=== PATIENT | male | born 1945 | race Caucasian/White ===

== ENCOUNTER 2020-03-13 00:15 | Inpatient (IN) | payer BC, MEDICAID, OTHER ==
[~2020-03-13] VITALS: Ht 167.6 cm; Wt 70.4 kg
[2020-03-13] MEDS ORDERED: ONDANSETRON HCL 4 MG/2 ML VIAL IV ONE (00:30)
[2020-03-13] MEDS ORDERED: MORPHINE SULFATE 4 MG/ML SYR/VIAL IV ONE ×2 (00:30→00:45)
[2020-03-13] MEDS ORDERED: NITROGLYCERIN 0.4 MG SL TAB SL ONE (00:45)
[2020-03-13] MEDS ORDERED: ASPirin-EC 81 mg tab PO ONE (00:45)
[2020-03-13 01:20] LABS: Basophils # (auto) 0.1 10 ^3/uL (0-0.2); Basophils % (auto) 1.1 % (0.0-2.0); Eosinophils # (auto) 0.6 10 ^3/uL (0-0.8); Eosinophils % (auto) 5.5 % (0.0-7.0); Hemoglobin 14.1 g/dL (13.5-17.5); Lymphocytes # (auto) 2.9 10 ^3/uL (0.4-5.4); Lymphocytes % (auto) 28.2 % (10.0-50.0); Mean Corpuscular Hemoglobin 29.5 pg (28.0-32.0); Mean Corpuscular Hgb Conc. 32.8 g/dL (32.0-36.0); Mean Corpuscular Volume 89.9 fL (80.0-100.0); Monocytes # (auto) 0.7 10 ^3/uL (0-1.3); Monocytes % (auto) 6.9 % (0.0-12.0); Neutrophils # (auto) 6.1 10 ^3/uL (1.6-8.6); Neutrophils % (auto) 58.3 % (37.0-80.0); Platelet Count (auto) 153 10^3/uL (140-450); Red Blood Cells 4.78 10^6/uL (4.5-5.90); Red Cell Distribution Width 13.8 % (11.8-14.3); White Blood Cell 10.5 10^3/uL (4.4-10.8)
[2020-03-13 01:33] LABS: Albumin 3.5 g/dL (3.4-5.0); Calcium 8.4 mg/dL (8.5-10.1); Potassium 3.9 mmol/L (3.5-5.1)
[2020-03-13 01:36] LABS: BUN/Creatinine Ratio 17.7
[2020-03-13 01:41] LABS: Bilirubin, Total 0.5 mg/dL (0.2-1.0); Total Protein 7.7 g/dL (6.4-8.2)
[2020-03-13 02:03] LABS: INR 1.14 (0.9-1.15); Partial Thromboplastin Time 27.1 sec (23.64-32.05)
[2020-03-13] MEDS ORDERED: FUROSEMIDE 20 MG/2 ML VIAL IV ONE (02:45)
[2020-03-13 03:51] LABS: Urine Bacteria None Seen /hpf (None Seen); Urine WBC None Seen /hpf (0 - 3)
[2020-03-13 04:52] LABS: Urine Specific Gravity 1.027 (1.001-1.035)
[2020-03-13 04:53] LABS: Urine Blood Normal /uL (Negative)
[2020-03-13] MEDS ORDERED: DEXTROSE (50%) 50ML SYRG IV PRN (07:45)
[2020-03-13] MEDS: CARVEDILOL 3.125 MG TAB PO SCH ×2 (09:44→21:38)
[2020-03-13] MEDS: POTASSIUM CHL 10 Meq TABLET PO SCH ×2 (09:44→21:32)
[2020-03-13] MEDS ORDERED: CARV6.2551 PO (09:48)
[2020-03-13] MEDS: ENOXAPARIN SOD 80 MG/0.8ML SYRINGE SC SCH ×3 (09:48→21:33)
[2020-03-13] MEDS: ASPirin-EC 81 mg tab PO SCH (10:00)
[2020-03-13] MEDS ORDERED: ENOXAPARIN SOD 80 MG/0.8ML SYRINGE SC SCH (10:00)
[2020-03-13] MEDS ORDERED: CARVEDILOL 3.125 MG TAB PO ONE (10:00)
[2020-03-13] MEDS ORDERED: ASPirin 81 mg TAB PO ONE (10:00)
[2020-03-13] MEDS ORDERED: ACETAMINOPHEN 500 MG TAB PO ONE (10:00)
[2020-03-13] MEDS ORDERED: FUROSEMIDE 40 MG/4 ML VIAL IV ONE (10:00)
[2020-03-13] MEDS ORDERED: POTASSIUM CHL 20 Meq TABLET PO ONE (10:00)
[2020-03-13] MEDS: InsuLIN REG 1unit/0.01ml Soln (100units/ml) SC SCH ×3 (11:29→21:54)
[2020-03-13] MEDS: ACCU-CHEK COMFORT CURVE STRIP VI SCH ×3 (11:29→21:33)
[2020-03-13 17:10] VITALS: BP 124/74
--- NOTE | 2020-03-13 17:10 | NUR ---
Telemetry admit from ER MIRNA SETH admitted to Telemetry unit after SBAR received. Patient oriented to RUBY ochoa RN, unit, room, bed, and unit policies regarding patient care and visiting hours. Patient now on continuous telemetry monitoring, tele box # 15 and telemetry reading on arrival to unit is normal sinus rhythm. Patient weighed by bedscale and encouraged to call if they need something. All questions and concerns addressed, patient verbalized understanding.
--- NOTE | 2020-03-13 17:34 | NUR ---
LAB UPDATE Received call in regards to blood cultures. I will notify attending MD.
--- NOTE | 2020-03-13 17:44 | NUR ---
Notified MD Called Dr. Owen in regards to patients blood cultures. Left a message and awaiting call back.
--- NOTE | 2020-03-13 17:46 | NUR ---
Received call back Updated MD about blood cultures, new orders received, I will follow through with new orders.
[2020-03-13] MEDS ORDERED: OPTISON 3ml Vial for INJ IV ONE (17:54)
[2020-03-13] MEDS ORDERED: VANCOMYCIN 1GM/250ML 250 ML IV ONE (18:00)
[2020-03-13] MEDS ORDERED: DULA0.5I (18:03)
[2020-03-13] MEDS ORDERED: DONE10TA40 (18:03)
[2020-03-13] MEDS ORDERED: GLIM1TAB3 (18:03)
[2020-03-13] MEDS ORDERED: MEMA1TAB5 PO (18:03)
[2020-03-13] MEDS ORDERED: FURO40TA4 (18:03)
[2020-03-13] MEDS ORDERED: ATOR40TA52 (18:03)
[2020-03-13] MEDS ORDERED: LISI-275 (18:03)
[2020-03-13] MEDS ORDERED: ICOS1CAP (18:03)
[2020-03-13] MEDS ORDERED: NORT25CA (18:03)
[2020-03-13] MEDS ORDERED: INSU1INJ19 (18:03)
[2020-03-13] MEDS: FUROSEMIDE 20 MG/2 ML VIAL IV SCH (18:23)
--- NOTE | 2020-03-13 19:15 | NUR ---
End of shift note Endorsed care to NOC JOLIE pastor. No s/s of distress noted at this time.
--- NOTE | 2020-03-13 19:15 | NUR ---
Opening note Assumed care of patient. Patient alert and orientated x4. No chest pain or SOB noted. Bed locked in lowest position. Side rails up x2. POC reviewed. Patient verbalized understanding. Call light within reach. Will continue to monitor.
[2020-03-13] MEDS: ATORVASTATIN 20 MG TAB PO SCH (21:32)
[2020-03-13 22:00] VITALS: BP 103/62
[2020-03-13] MEDS ORDERED: NORTRIPTYLINE HCL 10 MG CAP PO ONE (22:00)
[2020-03-13] MEDS ORDERED: ATORVASTATIN 20 MG TAB PO ONE (22:00)
[2020-03-13] MEDS ORDERED: DONEPEZIL HYDROCHLORIDE 5 MG TAB PO ONE (22:00)
[2020-03-14 05:00] VITALS: BP 104/66
[2020-03-14] MEDS: ACCU-CHEK COMFORT CURVE STRIP VI SCH ×4 (06:13→21:49)
[2020-03-14] MEDS: InsuLIN REG 1unit/0.01ml Soln (100units/ml) SC SCH ×4 (06:13→22:02)
[2020-03-14] MEDS: FUROSEMIDE 20 MG/2 ML VIAL IV SCH ×2 (06:13→17:57)
[2020-03-14 06:27] LABS: Basophils # (auto) 0.1 10 ^3/uL (0-0.2); Basophils % (auto) 0.7 % (0.0-2.0); Eosinophils # (auto) 0.6 10 ^3/uL (0-0.8); Eosinophils % (auto) 5.7 % (0.0-7.0); Hematocrit 41.1 % (41.0-53.0); Lymphocytes # (auto) 3.1 10 ^3/uL (0.4-5.4); Lymphocytes % (auto) 31.3 % (10.0-50.0); Mean Corpuscular Hemoglobin 30.4 pg (28.0-32.0); Mean Corpuscular Hgb Conc. 34.1 g/dL (32.0-36.0); Monocytes # (auto) 0.9 10 ^3/uL (0-1.3); Monocytes % (auto) 8.9 % (0.0-12.0); Neutrophils # (auto) 5.3 10 ^3/uL (1.6-8.6); Neutrophils % (auto) 53.4 % (37.0-80.0); Platelet Count (auto) 144 10^3/uL (140-450); Red Blood Cells 4.61 10^6/uL (4.5-5.90); White Blood Cell 9.9 10^3/uL (4.4-10.8)
[2020-03-14 06:31] LABS: Potassium 3.7 mmol/L (3.5-5.1)
[2020-03-14 06:43] LABS: BUN/Creatinine Ratio 24.3; Calcium 8.7 mg/dL (8.5-10.1)
--- NOTE | 2020-03-14 07:16 | NUR ---
Closing note Endorsed care to day shift RN.
--- NOTE | 2020-03-14 07:30 | NUR ---
Opening shift note Assumed care of patient from NOC JOLIE Henry. Patient is AOx4, so signs and symptoms of distress noted. Bed is in lowest locked position, side rails up x2, and call light is within reach. Updated patient on plan of care and patient verbalized understanding. I will continue to monitor q1hr and PRN.
[2020-03-14 08:36] VITALS: BP 116/76
[2020-03-14] MEDS ORDERED: LIDOCAINE 2%HCL (LOCAL ANESTH.) INJ 20ML MDV ONE ×2 (08:53→09:42)
[2020-03-14] MEDS ORDERED: IODIXANOL 320MG/ML 100ML BTL IV ONE ×2 (08:53→09:43)
[2020-03-14] MEDS ORDERED: VERAPAMIL 2.5MG/ML INJ 2ML VIAL IV ONE ×2 (08:56→10:00)
[2020-03-14] MEDS ORDERED: ANGIOMAX 250 MG VIAL IV ONE ×2 (08:57→10:00)
[2020-03-14] MEDS ORDERED: MIDAZOLAM HCL 1MG/1ML-2 ML VIAL ONE ×2 (08:57→10:01)
[2020-03-14] MEDS ORDERED: fentaNYL CITRATE 100 MCG/2 ML VL ONE ×2 (08:57→10:01)
[2020-03-14] MEDS ORDERED: SODIUM CHL 0.9% 0 ML ONE ×2 (08:57→10:01)
--- NOTE | 2020-03-14 09:25 | NUR ---
Patient off unit Patient taken down to laboratory associate for a procedure.
[2020-03-14] MEDS ORDERED: HEPARIN SODIUM (PORCINE) 5000 UNITS/ML 1ML VIAL ONE (10:00)
[2020-03-14] MEDS: ENOXAPARIN SOD 80 MG/0.8ML SYRINGE SC SCH ×2 (10:00→21:49)
[2020-03-14] MEDS ORDERED: NITROGLYCERIN 50MG/250ML 250 ML IV ONE (10:05)
[2020-03-14] MEDS ORDERED: diphenhdrAMINE HCL 50 MG/1 ML VL ONE (10:17)
--- NOTE | 2020-03-14 11:20 | NUR ---
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
--- NOTE | 2020-03-14 11:48 | NUR ---
Patient back on unit Patient back on unit, no signs and symptoms of distress noted. Patient placed on 2l oxygen via nasal cannula, call light placed within reach, and instructed patient to call for assistance. I will continue to monitor q1hr and PRN.
--- NOTE | 2020-03-14 11:50 | NUR ---
Vasc Band Vasc band is in place, 2ml of air removed. No bleeding noted. Educated patient about potential adverse effects and instructed to notify primary RN or staff member if bleeding, or loss of sensation is noted in the extremity. Patient verbalized understanding. I will continue to monitor q1hr and PRN.
--- NOTE | 2020-03-14 12:15 | NUR ---
Vasc Band Assessment: 2ml of air removed from vasc band. No bleeding noted. Educated patient about potential adverse effects and instructed to notify primary RN or staff member if bleeding, or loss of sensation is noted in the extremity. Patient verbalized understanding. I will continue to monitor q1hr and PRN.
[2020-03-14] MEDS: ASPirin-EC 81 mg tab PO SCH (12:32)
[2020-03-14] MEDS: POTASSIUM CHL 10 Meq TABLET PO SCH ×2 (12:32→21:48)
[2020-03-14] MEDS: CARVEDILOL 3.125 MG TAB PO SCH ×2 (12:33→21:47)
[2020-03-14 12:51] VITALS: BP 117/72
--- NOTE | 2020-03-14 15:45 | NUR ---
Vasc Band Assessment: Final 2ml of air removed from vasc band. Site is intact, no trauma or bleeding noted. Patient verbalized having sensation in distal hand, and has full range of motion. Educated patient about potential adverse effects and instructed to notify primary RN or staff member if bleeding, or loss of sensation is noted in the extremity. Educated patient to not lift more than 5lb with affected extremity and not to strain extremity. Patient verbalized understanding. I will continue to monitor q1hr and PRN.
[2020-03-14 16:39] VITALS: BP 123/63
--- NOTE | 2020-03-14 17:02 | NUR ---
I faxed higher level of care order to [facility], [facility], [facility], [facility] and [facility]. I spoke with [facility] Dry Box Tender Isabella and made her aware of the higher level of care order.
--- NOTE | 2020-03-14 17:07 | NUR ---
Received call from physician Received call from Dr. Torres regarding transfer. No new orders received at this time.
--- NOTE | 2020-03-14 17:56 | NUR ---
I called [facility] and left message for powerhouse engineer asking about bed availability. I called [facility] to reach powerhouse engineer to check on bed availability-phone just rang and rang-unable to speak with a live person, unable to leave a message. I placed [facility] on will call pending transfer, made patient's primary nurse aware.
--- NOTE | 2020-03-14 19:10 | NUR ---
End of shift note Endorsed care to NOC JOLIE pastor. No s/s of distress noted at this time.
--- NOTE | 2020-03-14 19:20 | NUR ---
Opening note Assumed care of patient. Patient alert and orientated x4. No SOB or distress noted. Bed locked and lowest position. Call light within reach. Will continue to monitor.
[2020-03-14] MEDS: ATORVASTATIN 20 MG TAB PO SCH (21:48)
[2020-03-14 22:00] VITALS: BP 123/74
[2020-03-15] VITALS (8 sets, daily range): BP systolic 102–132; BP diastolic 62–78
[2020-03-15] MEDS: FUROSEMIDE 20 MG/2 ML VIAL IV SCH ×2 (05:52→19:33)
[2020-03-15] MEDS: InsuLIN REG 1unit/0.01ml Soln (100units/ml) SC SCH ×3 (06:26→16:57)
[2020-03-15] MEDS: ACCU-CHEK COMFORT CURVE STRIP VI SCH ×3 (06:26→16:58)
--- NOTE | 2020-03-15 07:27 | NUR ---
Closing note Endorsed care to day shift JOLIE Carvalho
--- NOTE | 2020-03-15 09:11 | NUR ---
I called [facility] and spoke with house builder-they have no beds available and have 26 patients in their ER waiting for a bed. I called [facility] [phone] and spoke with Ariela Ervin, provided her with contact information for Dr. Owen and Dr. Sanchez as well as the nurse's station. I re-faxed clinical information to them.
[2020-03-15] MEDS: ENOXAPARIN SOD 80 MG/0.8ML SYRINGE SC SCH (10:09)
[2020-03-15] MEDS: ASPirin-EC 81 mg tab PO SCH (10:09)
[2020-03-15] MEDS: POTASSIUM CHL 10 Meq TABLET PO SCH (10:10)
[2020-03-15] MEDS: CARVEDILOL 3.125 MG TAB PO SCH (10:10)
--- NOTE | 2020-03-15 11:33 | NUR ---
I spoke with Ariela Ervin at the [facility]-provided her with additional clinical information as requested-they are verifying financial status and she will give me a call back to let me know if they are able to accept this patient.
--- NOTE | 2020-03-15 11:43 | NUR ---
I called [facility] and spoke with Kacy, they have no beds available at this time. I called [facility] and spoke with Rahle-she said they have no beds available at this time. I called [employer] [phone] and left message updating her on the status of the transfer and requesting authorization numbers for facility as well as transportation.
--- NOTE | 2020-03-15 11:51 | NUR ---
I received a call from [facility] [employer] Isabella-authorization number for facility is [id number] and authorization number for [facility] is [id number]. I called [facility] and spoke with Manolo, provided him with [facility] authorization number and contact information for [employer]. I called [facility] ([phone]) and spoke with Navid, patient remains on will-call pending transfer to [facility]-provided her with [facility] authorization number.
--- NOTE | 2020-03-15 15:13 | NUR ---
Patient will be going to [facility] room 451 bed A, accepting physician is Dr. Joleen Ohara, nurse to call report to [phone]. I called [facility] ([phone]) and spoke with Kwame, picking table worker time 1830. Nurse Myron made aware, she is also aware that she needs to call [facility] when COVID-19 test results come in. I spoke with Ariela Ervin at [facility] [phone] and made her aware of picking table worker time. I also called [employer] and made her aware.
--- NOTE | 2020-03-15 17:03 | NUR ---
REPORT GIVEN TO MITCHEL, ALL QUESTIONS AND CONCERNS ADDRESSED.
--- NOTE | 2020-03-15 17:04 | NUR ---
NOTIFIED CM LACY VIA PHONE NUMBER [phone] REGARDING COVID 19 RESULT NEGATIVE, UPDATED WITH TRANSPORTATION INFO. WILL PROCEED WITH THE TRANSFER.
--- NOTE | 2020-03-15 19:34 | NUR ---
RECEIVED PHONE CALL FROM [facility]. [facility], TRANSPORTATION WILL BE DELAY PER [facility], PICC UP TIME WILL BE AT 2100.
--- NOTE | 2020-03-15 19:35 | NUR ---
CALL [facility], NOTIFIED MITCHEL DAVE TRANSPORTATION DELAY. MOLD STRIPPER TIME CHANGED TO 2099.
--- NOTE | 2020-03-15 20:20 | NUR ---
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 PATIENT IS STABLE FOR DISCHARGE. DENIES SOB, PAIN. NO DISTRESS NOTED. PATIENT IS AWARE OF POCS. [facility] IS AWARE OF PATIENT'S TRANSFER TO THEIR FACILITY. REPORT WAS GIVEN TO MITCHEL MCKINNEY BY JOLIE BECERRA. DOCS IN AN ENVELOPE WERE GIVEN TO [facility] STAFF. VITALS ARE: BP= 120/78 HR= 70 T= 97.3 O2= 97% RA RR= 18. BELONGINS ARE SENT WITH PATIENT. NOTHING IS MISSING OUT. TELE BOX WAS DISCONNECTED, SANITIZED AND SENT TO [facility]. MD, [employer] COMMUNICATIONS ENGINEER AND CHARGE NURSE ARE AWARE OF PATIENT'S TRANSFER TO [facility].
== END 2020-03-15 20:30 | disposition short-term general hospital (02) | DRG 280 ==
LOC: EDBD 00:15 → ER 00:20 → EDBD 00:21 → TELE 00:21 → TELE-EAST 18:28
PROVIDERS: ADMIT Hospitalist; ATTEND Hospitalist
PROC: 5A09357 Assistance with Respiratory Ventilation, Less than 24 Consecutive Hours, Continuous Positive Airway Pressure (ICD-10-PCS; 2020-03-13)
PROC: 4A023N7 Measurement of Cardiac Sampling and Pressure, Left Heart, Percutaneous Approach (ICD-10-PCS; principal; 2020-03-14)
PROC: B211YZZ Fluoroscopy of Multiple Coronary Arteries using Other Contrast (ICD-10-PCS; 2020-03-14)
PROC: B215YZZ Fluoroscopy of Left Heart using Other Contrast (ICD-10-PCS; 2020-03-14)
DX: T82.855A Stenosis of coronary artery stent, initial encounter (principal); I21.4 Non-ST elevation (NSTEMI) myocardial infarction; I50.43 Acute on chronic combined systolic (congestive) and diastolic (congestive) heart failure; I25.10 Atherosclerotic heart disease of native coronary artery without angina pectoris; F03.90 Unspecified dementia, unspecified severity, without behavioral disturbance, psychotic disturbance, mood disturbance, and anxiety; E11.9 Type 2 diabetes mellitus without complications; I11.0 Hypertensive heart disease with heart failure; Z20.828 Contact with and (suspected) exposure to other viral communicable diseases; Z86.73 Personal history of transient ischemic attack (TIA), and cerebral infarction without residual deficits; Z83.3 Family history of diabetes mellitus; Z95.1 Presence of aortocoronary bypass graft; Z79.4 Long term (current) use of insulin
CPT/HCPCS: 36415; 71045; 80048; 80053; 80061; 81001; 82962; 83036; 83605; 83880; 84484; 85025; 85379; 85610; 85730; 86850; 86900; 86901; 87040; 87070; 87077; 87186; 87804; 87880; 93005; 93306; 93458; 96374; 96375; 96376; 99152; G0378; J1815; J2250; J2405; Q9956; Q9967

== ENCOUNTER 2021-03-20 16:47 | Inpatient (IN) | payer BC, MEDICARE, OTHER ==
[~2021-03-20] VITALS: Ht 167.6 cm; Wt 73.0 kg
[~2021-03-20 16:47] MED LIST: ATOR40TA52 PO; CARV6.2551 PO; DONE1TAB88 PO; DULA0.5I SC; FURO40TA4 PO; GLIM-5 PO; ICOS1CAP PO; INSU1INJ19; LISI-275 PO; MEMA1TAB5 PO; NORT25CA PO
[2021-03-20] MEDS ORDERED: IBUP800T26 PO (16:57)
[2021-03-20] MEDS ORDERED: FUROSEMIDE 40 MG/4 ML VIAL IV ONE (17:00)
[2021-03-20] MEDS ORDERED: ONDANSETRON HCL 4 MG/2 ML VIAL IV ONE (17:15)
[2021-03-20] MEDS ORDERED: MORPHINE SULFATE 4 MG/ML SYR/VIAL IV ONE (17:15)
[2021-03-20 17:25] LABS: Basophils # (auto) 0.1 10 ^3/uL (0-0.2); Eosinophils # (auto) 0.4 10 ^3/uL (0-0.8); Hematocrit 45.4 % (41.0-53.0); Hemoglobin 15.4 g/dL (13.5-17.5); Lymphocytes # (auto) 2.1 10 ^3/uL (0.4-5.4); Lymphocytes % (auto) 22.6 % (10.0-50.0); Mean Corpuscular Hemoglobin 30.6 pg (28.0-32.0); Mean Corpuscular Volume 89.8 fL (80.0-100.0); Monocytes # (auto) 0.6 10 ^3/uL (0-1.3); Monocytes % (auto) 7.1 % (0.0-12.0); Neutrophils % (auto) 65.3 % (37.0-80.0); Red Blood Cells 5.05 10^6/uL (4.5-5.90); Red Cell Distribution Width 14.4 % (11.8-14.3); White Blood Cell 9.2 10^3/uL (4.4-10.8)
[2021-03-20 17:38] LABS: Anion Gap 9 (5-15); Blood Urea Nitrogen 16 mg/dL (7-18); Calcium 8.9 mg/dL (8.5-10.1); Carbon Dioxide 24 mmol/L (21-32); Chloride 108 mmol/L (98-107); Glucose 143 mg/dL (74-106); Potassium 3.7 mmol/L (3.5-5.1); Sodium 141 mmol/L (136-145)
[2021-03-20 17:44] LABS: Alanine Aminotransferase 22 U/L (16-61); Alkaline Phosphatase 68 U/L (45-117); Aspartate Aminotransferase 20 U/L (15-37); BUN/Creatinine Ratio 15.1; Bilirubin, Total 0.9 mg/dL (0.2-1.0); GFR African American 88 mL/min; GFR Non-African American 73 mL/min; Total Protein 8.2 g/dL (6.4-8.2)
[2021-03-20 18:02] LABS: INR 1.15 (0.9-1.15)
[2021-03-20] MEDS ORDERED: ONDANSETRON HCL 4 MG/2 ML VIAL IV PRN (19:45)
[2021-03-20] MEDS ORDERED: MORPHINE SULFATE INJECTION 2 MG/ML SYRG IV PRN ×2 (19:45)
[2021-03-20] MEDS ORDERED: ACETAMINOPHEN 500 MG TAB PO PRN (19:45)
[2021-03-20] MEDS ORDERED: NITROGLYCERIN 50MG/250ML 250 ML IV ONE (19:45)
[2021-03-20] MEDS ORDERED: HYDROcodone-ACET 5/325MG TAB PO PRN (19:45)
[2021-03-20] MEDS ORDERED: NITROGLYCERIN 0.4 MG SL TAB SL PRN (19:45)
[2021-03-20] MEDS ORDERED: ALBUTEROL SULF 2.5 MG/0.5ML(0.5%) NEB SOLN NEB PRN (19:45)
[2021-03-20] MEDS ORDERED: DEXTROSE (50%) 50ML SYRG IV PRN (19:45)
[2021-03-20] MEDS ORDERED: IPRATROPIUM BROM 0.5 MG/2.5ML INH SOL NEB PRN (19:45)
[2021-03-20 20:23] LABS: Urine Bacteria NONE SEEN /hpf (None Seen); Urine Blood TRACE /uL (Negative); Urine Hyaline Cast FEW /lpf (0 - 2); Urine WBC <1 /hpf (0 - 3)
[2021-03-20] MEDS: CARVEDILOL 3.125 MG TAB PO SCH (22:21)
[2021-03-20] MEDS: InsuLIN REG 1unit/0.01ml Soln (100units/ml) SC SCH (22:32)
[2021-03-20] MEDS: ACCU-CHEK COMFORT CURVE STRIP VI SCH (22:34)
[2021-03-21 00:35] VITALS: BP 126/68
[2021-03-21] MEDS: InsuLIN REG 1unit/0.01ml Soln (100units/ml) SC SCH ×4 (06:36→22:24)
[2021-03-21] MEDS: ACCU-CHEK COMFORT CURVE STRIP VI SCH ×3 (06:36→22:24)
[2021-03-21 08:00] LABS: BUN/Creatinine Ratio 16.5; Calcium 8.7 mg/dL (8.5-10.1); Potassium 3.8 mmol/L (3.5-5.1)
[2021-03-21] MEDS: FUROSEMIDE 20 MG/2 ML VIAL IV SCH (10:20)
[2021-03-21] MEDS: CARVEDILOL 3.125 MG TAB PO SCH ×2 (10:21→22:51)
[2021-03-21] MEDS: FAMOTIDINE 20 MG TAB PO SCH (10:21)
[2021-03-21] MEDS: ASPirin 81 mg TAB PO SCH (10:22)
[2021-03-21] MEDS: CLOPIDOGREL BISULFATE 75 MG TAB PO SCH (10:22)
[2021-03-22] MEDS: ACCU-CHEK COMFORT CURVE STRIP VI SCH ×3 (07:00→17:53)
[2021-03-22] MEDS: InsuLIN REG 1unit/0.01ml Soln (100units/ml) SC SCH ×3 (07:00→17:54)
[2021-03-22] MEDS: FUROSEMIDE 20 MG/2 ML VIAL IV SCH (10:39)
[2021-03-22] MEDS: ASPirin 81 mg TAB PO SCH (10:40)
[2021-03-22] MEDS: CARVEDILOL 3.125 MG TAB PO SCH (10:40)
[2021-03-22] MEDS: FAMOTIDINE 20 MG TAB PO SCH (10:41)
[2021-03-22] MEDS: CLOPIDOGREL BISULFATE 75 MG TAB PO SCH (10:41)
[2021-03-22] MEDS ORDERED: VANCOMYCIN 1GM/250ML 250 ML IV ONE ×2 (11:59→12:10)
[2021-03-22] MEDS ORDERED: INSUINJ37 SC (12:01)
[2021-03-22] MEDS ORDERED: ASPI-543 PO (12:08)
[2021-03-22] MEDS ORDERED: OLOP0.2S15 OP (12:09)
[2021-03-22 13:00] VITALS: BP 147/84
[2021-03-22 13:56] VITALS: BP 147/84
[2021-03-22 16:00] VITALS: BP 141/78
[2021-03-22] MEDS ORDERED: VANCOMYCIN PER PHARMACY 0 MG IV SCH (16:15)
[2021-03-22 18:07] LABS: Basophils # (auto) 0.1 10 ^3/uL (0-0.2); Basophils % (auto) 0.9 % (0.0-2.0); Eosinophils # (auto) 0.3 10 ^3/uL (0-0.8); Eosinophils % (auto) 2.7 % (0.0-7.0); Hematocrit 42.9 % (41.0-53.0); Hemoglobin 14.7 g/dL (13.5-17.5); Lymphocytes # (auto) 2.2 10 ^3/uL (0.4-5.4); Lymphocytes % (auto) 19.9 % (10.0-50.0); Mean Corpuscular Hemoglobin 30.4 pg (28.0-32.0); Mean Corpuscular Hgb Conc. 34.4 g/dL (32.0-36.0); Mean Corpuscular Volume 88.4 fL (80.0-100.0); Monocytes # (auto) 1.1 10 ^3/uL (0-1.3); Monocytes % (auto) 9.7 % (0.0-12.0); Neutrophils # (auto) 7.5 10 ^3/uL (1.6-8.6); Neutrophils % (auto) 66.8 % (37.0-80.0); Nucleated Red Blood Cells % 0.1 %; Red Blood Cells 4.85 10^6/uL (4.5-5.90); Red Cell Distribution Width 13.9 % (11.8-14.3); White Blood Cell 11.2 10^3/uL (4.4-10.8)
[2021-03-22 18:23] LABS: BUN/Creatinine Ratio 18.9; Calcium 8.9 mg/dL (8.5-10.1); Potassium 3.4 mmol/L (3.5-5.1)
[2021-03-22 20:00] VITALS: BP 141/78
[2021-03-22 22:00] VITALS: BP 119/60
[2021-03-23] VITALS (7 sets, daily range): BP systolic 113–123; BP diastolic 68–83
[2021-03-23] MEDS: ACCU-CHEK COMFORT CURVE STRIP VI SCH ×5 (00:33→22:30)
[2021-03-23] MEDS: CARVEDILOL 3.125 MG TAB PO SCH ×3 (00:33→22:29)
[2021-03-23] MEDS: InsuLIN REG 1unit/0.01ml Soln (100units/ml) SC SCH ×5 (00:40→22:28)
[2021-03-23 05:42] LABS: Basophils # (auto) 0.1 10 ^3/uL (0-0.2); Basophils % (auto) 0.9 % (0.0-2.0); Eosinophils # (auto) 0.5 10 ^3/uL (0-0.8); Eosinophils % (auto) 5.1 % (0.0-7.0); Hemoglobin 14.5 g/dL (13.5-17.5); Lymphocytes # (auto) 2.2 10 ^3/uL (0.4-5.4); Lymphocytes % (auto) 24.3 % (10.0-50.0); Mean Corpuscular Hemoglobin 31.3 pg (28.0-32.0); Mean Corpuscular Hgb Conc. 35.4 g/dL (32.0-36.0); Mean Corpuscular Volume 88.2 fL (80.0-100.0); Monocytes # (auto) 0.9 10 ^3/uL (0-1.3); Monocytes % (auto) 9.3 % (0.0-12.0); Neutrophils # (auto) 5.5 10 ^3/uL (1.6-8.6); Neutrophils % (auto) 60.4 % (37.0-80.0); Nucleated Red Blood Cells % 0.1 %; Red Blood Cells 4.64 10^6/uL (4.5-5.90); White Blood Cell 9.2 10^3/uL (4.4-10.8)
[2021-03-23 06:02] LABS: Calcium 8.8 mg/dL (8.5-10.1); Potassium 3.1 mmol/L (3.5-5.1)
[2021-03-23 06:04] LABS: BUN/Creatinine Ratio 27.4
[2021-03-23] MEDS: ASPirin 81 mg TAB PO SCH (10:28)
[2021-03-23] MEDS: CLOPIDOGREL BISULFATE 75 MG TAB PO SCH (10:29)
[2021-03-23] MEDS: FUROSEMIDE 20 MG/2 ML VIAL IV SCH (10:30)
[2021-03-23] MEDS: VANCOMYCIN 1GM/250ML 250 ML IV SCH (12:23)
[2021-03-23] MEDS ORDERED: FURO1TAB33 PO (13:03)
[2021-03-23] MEDS ORDERED: CLIN300C8 PO (13:03)
[2021-03-23] MEDS ORDERED: POTASSIUM CHL 20MEQ/100ML 100 ML IV ONE (20:00)
[2021-03-23] MEDS ORDERED: POTASSIUM CHL 20 Meq TABLET PO ONE (20:00)
[2021-03-24] VITALS (7 sets, daily range): BP systolic 123–138; BP diastolic 71–81
[2021-03-24] MEDS ORDERED: POTASSIUM CHL 20 Meq TABLET PO ONE ×2 (00:15→02:30)
[2021-03-24 05:30] LABS: Basophils # (auto) 0.1 10 ^3/uL (0-0.2); Basophils % (auto) 0.9 % (0.0-2.0); Eosinophils # (auto) 0.5 10 ^3/uL (0-0.8); Eosinophils % (auto) 4.2 % (0.0-7.0); Hematocrit 44.2 % (41.0-53.0); Hemoglobin 15.3 g/dL (13.5-17.5); Lymphocytes # (auto) 2.5 10 ^3/uL (0.4-5.4); Lymphocytes % (auto) 22.5 % (10.0-50.0); Mean Corpuscular Hemoglobin 30.8 pg (28.0-32.0); Mean Corpuscular Hgb Conc. 34.6 g/dL (32.0-36.0); Mean Corpuscular Volume 88.8 fL (80.0-100.0); Monocytes % (auto) 9.3 % (0.0-12.0); Neutrophils # (auto) 7.1 10 ^3/uL (1.6-8.6); Neutrophils % (auto) 63.1 % (37.0-80.0); Nucleated Red Blood Cells % 0.2 %; Red Blood Cells 4.97 10^6/uL (4.5-5.90); White Blood Cell 11.3 10^3/uL (4.4-10.8)
[2021-03-24] MEDS: ACCU-CHEK COMFORT CURVE STRIP VI SCH ×4 (06:11→22:00)
[2021-03-24] MEDS: InsuLIN REG 1unit/0.01ml Soln (100units/ml) SC SCH ×4 (06:14→22:00)
[2021-03-24] MEDS: ASPirin 81 mg TAB PO SCH (09:49)
[2021-03-24] MEDS: FUROSEMIDE 20 MG/2 ML VIAL IV SCH (09:49)
[2021-03-24] MEDS: CARVEDILOL 3.125 MG TAB PO SCH ×2 (09:50→21:49)
[2021-03-24] MEDS: CLOPIDOGREL BISULFATE 75 MG TAB PO SCH (09:50)
[2021-03-24] MEDS: VANCOMYCIN 1GM/250ML 250 ML IV SCH (12:58)
[2021-03-24 13:30] LABS: Calcium 9.6 mg/dL (8.5-10.1); Potassium 3.8 mmol/L (3.5-5.1)
[2021-03-24 13:32] LABS: BUN/Creatinine Ratio 23.1
[2021-03-24] MEDS ORDERED: LORazepam 2MG/ML-1ML VIAL ONE (17:12)
[2021-03-25 04:41] VITALS: BP 137/85
[2021-03-25] MEDS: ACCU-CHEK COMFORT CURVE STRIP VI SCH ×2 (04:44→11:20)
[2021-03-25 05:58] LABS: Basophils # (auto) 0.1 10 ^3/uL (0-0.2); Basophils % (auto) 1.1 % (0.0-2.0); Eosinophils # (auto) 0.6 10 ^3/uL (0-0.8); Hematocrit 41.7 % (41.0-53.0); Hemoglobin 14.7 g/dL (13.5-17.5); Lymphocytes # (auto) 2.6 10 ^3/uL (0.4-5.4); Lymphocytes % (auto) 29.1 % (10.0-50.0); Mean Corpuscular Hgb Conc. 35.1 g/dL (32.0-36.0); Mean Corpuscular Volume 88.1 fL (80.0-100.0); Monocytes # (auto) 0.8 10 ^3/uL (0-1.3); Monocytes % (auto) 9.4 % (0.0-12.0); Neutrophils # (auto) 4.8 10 ^3/uL (1.6-8.6); Neutrophils % (auto) 53.4 % (37.0-80.0); Nucleated Red Blood Cells % 0.1 %; Red Blood Cells 4.73 10^6/uL (4.5-5.90); Red Cell Distribution Width 14.2 % (11.8-14.3)
[2021-03-25] MEDS: InsuLIN REG 1unit/0.01ml Soln (100units/ml) SC SCH ×2 (06:20→11:20)
[2021-03-25 08:15] VITALS: BP 130/74
[2021-03-25 09:00] VITALS: BP 130/74
[2021-03-25] MEDS: ASPirin 81 mg TAB PO SCH (09:45)
[2021-03-25] MEDS: CARVEDILOL 3.125 MG TAB PO SCH (09:45)
[2021-03-25] MEDS: FUROSEMIDE 20 MG/2 ML VIAL IV SCH (09:45)
[2021-03-25] MEDS: CLOPIDOGREL BISULFATE 75 MG TAB PO SCH (09:45)
[2021-03-25 10:51] VITALS: BP 130/74
== END 2021-03-25 11:45 | disposition home health service (06) | DRG 291 ==
LOC: EDBD 16:47 → ER 16:47 → TELE 19:32 → TELE-CENTR 19:44
PROVIDERS: ADMIT Nurse Practitioner Acute Care; ATTEND Internal Medicine
PROC: 5A09357 Assistance with Respiratory Ventilation, Less than 24 Consecutive Hours, Continuous Positive Airway Pressure (ICD-10-PCS; principal; 2021-03-20)
PROC: 5A09357 Assistance with Respiratory Ventilation, Less than 24 Consecutive Hours, Continuous Positive Airway Pressure (ICD-10-PCS; 2021-03-22)
DX: I11.0 Hypertensive heart disease with heart failure (principal); J96.01 Acute respiratory failure with hypoxia; R78.81 Bacteremia; I50.23 Acute on chronic systolic (congestive) heart failure; I25.110 Atherosclerotic heart disease of native coronary artery with unstable angina pectoris; I42.9 Cardiomyopathy, unspecified; E11.9 Type 2 diabetes mellitus without complications; Z20.822 Contact with and (suspected) exposure to COVID-19; Z86.73 Personal history of transient ischemic attack (TIA), and cerebral infarction without residual deficits; E78.5 Hyperlipidemia, unspecified; F03.90 Unspecified dementia, unspecified severity, without behavioral disturbance, psychotic disturbance, mood disturbance, and anxiety; I45.10 Unspecified right bundle-branch block; J44.9 Chronic obstructive pulmonary disease, unspecified; Z79.02 Long term (current) use of antithrombotics/antiplatelets; Z79.82 Long term (current) use of aspirin; Z95.1 Presence of aortocoronary bypass graft; B96.89 Other specified bacterial agents as the cause of diseases classified elsewhere
CPT/HCPCS: 36415; 36600; 71045; 80048; 80053; 80202; 81001; 82565; 82728; 82805; 82962; 83036; 83605; 83880; 84484; 85025; 85610; 86141; 87040; 87426; 93005; 93306; 94640; 94660; 96365; 96375; 97116; 97163; 99291; G0378; J1815; J2405; J3480

== ENCOUNTER 2022-01-29 13:25 | Inpatient (IN) | payer OTHER, MEDICAID ==
[~2022-01-29] VITALS: Ht 170.2 cm; Wt 74.8 kg
[~2022-01-29 13:25] MED LIST changes: +ASPI-543 PO; +FURO1TAB33 PO; -FURO40TA4 PO; -INSU1INJ19; +INSUINJ37 SC; +OLOP0.2S15 OP
[2022-01-29 15:05] LABS: Basophils # (auto) 0 10 ^3/uL (0-0.2); Basophils % (auto) 0.5 % (0.0-2.0); Eosinophils # (auto) 0.1 10 ^3/uL (0-0.8); Hematocrit 41.2 % (41.0-53.0); Hemoglobin 14.2 g/dL (13.5-17.5); Lymphocytes # (auto) 1.3 10 ^3/uL (0.4-5.4); Lymphocytes % (auto) 14.4 % (10.0-50.0); Mean Corpuscular Hemoglobin 29.9 pg (28.0-32.0); Mean Corpuscular Hgb Conc. 34.6 g/dL (32.0-36.0); Mean Corpuscular Volume 86.3 fL (80.0-100.0); Monocytes # (auto) 1.1 10 ^3/uL (0-1.3); Monocytes % (auto) 12.2 % (0.0-12.0); Neutrophils # (auto) 6.4 10 ^3/uL (1.6-8.6); Neutrophils % (auto) 71.9 % (37.0-80.0); Nucleated Red Blood Cells % 0.1 %; Red Blood Cells 4.77 10^6/uL (4.5-5.90); Red Cell Distribution Width 13.8 % (11.8-14.3); White Blood Cell 8.9 10^3/uL (4.4-10.8)
[2022-01-29 15:14] LABS: Albumin 3.5 g/dL (3.4-5.0); Magnesium 1.8 mg/dL (1.6-2.6); Potassium 4.2 mmol/L (3.5-5.1)
[2022-01-29 15:17] LABS: BUN/Creatinine Ratio 15.8; Bilirubin, Total 1.2 mg/dL (0.2-1.0); Total Protein 8.4 g/dL (6.4-8.2)
[2022-01-29 15:29] LABS: INR 1.14 (0.9-1.15); Partial Thromboplastin Time 29.2 sec (23.6-33.0)
[2022-01-29] MEDS ORDERED: LIDOCAINE 2% JELLY 11ml (GLYDO) ONE (17:14)
[2022-01-29 17:44] LABS: Urine Bacteria FEW /hpf (None Seen); Urine Blood 3+ /uL (Negative); Urine Mucus FEW (None Seen); Urine Specific Gravity 1.016 (1.001-1.035); Urine WBC 473 /hpf (0 - 3)
[2022-01-29] MEDS ORDERED: ACETAMINOPHEN 325 MG TAB PO ONE (17:45)
[2022-01-29] MEDS ORDERED: cefTRIAXone 1GM/50ML D5W 50 ML IV ONE (17:45)
[2022-01-29] MEDS ORDERED: SODIUM CHLORIDE 0.9% 1,000 ML IV ONE (17:45)
[2022-01-29] MEDS ORDERED: LIDOCAINE 2% JELLY 11ml (GLYDO) UR ONE (17:45)
[2022-01-29] MEDS ORDERED: IOHEXOL 300 MG/ML 100ML BOTTLE IJ ONE (18:11)
[2022-01-29] MEDS ORDERED: ONDANSETRON HCL 4 MG/2 ML VIAL IV PRN (22:15)
[2022-01-29] MEDS ORDERED: ACETAMINOPHEN 325 MG TAB PO PRN (22:15)
[2022-01-29] MEDS ORDERED: HYDROcodone-ACET 5/325MG TAB PO PRN (22:15)
[2022-01-29] MEDS ORDERED: MORPHINE SULFATE INJECTION 2 MG/ML SYRG IV PRN (22:15)
[2022-01-29] MEDS ORDERED: DEXTROSE (50%) 50ML SYRG IV PRN (22:15)
[2022-01-29] MEDS ORDERED: TEMAZEPAM 15 MG CAP PO PRN (22:15)
[2022-01-30] MEDS: InsuLIN REG 1unit/0.01ml Soln (100units/ml) SC SCH ×3 (00:31→12:25)
[2022-01-30 05:01] VITALS: BP 133/60
[2022-01-30] MEDS: ACCU-CHEK COMFORT CURVE STRIP VI SCH ×3 (05:34→12:21)
[2022-01-30 05:41] LABS: Basophils # (auto) 0 10 ^3/uL (0-0.2); Basophils % (auto) 0.5 % (0.0-2.0); Eosinophils # (auto) 0 10 ^3/uL (0-0.8); Eosinophils % (auto) 0.1 % (0.0-7.0); Hematocrit 38.5 % (41.0-53.0); Hemoglobin 13.4 g/dL (13.5-17.5); Lymphocytes # (auto) 1.3 10 ^3/uL (0.4-5.4); Lymphocytes % (auto) 14.1 % (10.0-50.0); Mean Corpuscular Hemoglobin 29.9 pg (28.0-32.0); Mean Corpuscular Hgb Conc. 34.8 g/dL (32.0-36.0); Mean Corpuscular Volume 85.8 fL (80.0-100.0); Monocytes # (auto) 1.5 10 ^3/uL (0-1.3); Monocytes % (auto) 16.7 % (0.0-12.0); Neutrophils # (auto) 6.2 10 ^3/uL (1.6-8.6); Neutrophils % (auto) 68.6 % (37.0-80.0); Red Blood Cells 4.49 10^6/uL (4.5-5.90); Red Cell Distribution Width 13.8 % (11.8-14.3); White Blood Cell 9.1 10^3/uL (4.4-10.8)
[2022-01-30 05:59] LABS: Albumin 3.1 g/dL (3.4-5.0); Calcium 8.6 mg/dL (8.5-10.1); Potassium 3.5 mmol/L (3.5-5.1)
[2022-01-30 06:02] LABS: BUN/Creatinine Ratio 16.7; Bilirubin, Total 1.1 mg/dL (0.2-1.0); Total Protein 7.5 g/dL (6.4-8.2)
[2022-01-30 08:00] VITALS: BP 155/89
[2022-01-30] MEDS ORDERED: MORPHINE SULFATE 4 MG/ML SYR/VIAL IV PRN (08:15)
[2022-01-30 09:00] VITALS: BP 155/89
[2022-01-30] MEDS ORDERED: cefTRIAXone 1GM/50ML D5W 50 ML IV SCH (09:00)
[2022-01-30] MEDS ORDERED: FUROSEMIDE 20 MG TAB PO SCH (10:00)
[2022-01-30] MEDS ORDERED: CARVEDILOL 3.125 MG TAB PO SCH (10:00)
[2022-01-30] MEDS ORDERED: MEMANTINE HCL 5 MG TAB PO SCH (10:00)
[2022-01-30] MEDS ORDERED: LISINOPRIL 5 MG TAB PO SCH (10:00)
[2022-01-30] MEDS ORDERED: MANNITOL FTV 25% 12.5 GM/50 ML 50 ML IV ONE (12:30)
[2022-01-30 13:00] VITALS: BP 143/87
[2022-01-30 13:36] VITALS: BP 95/71
[2022-01-30] MEDS ORDERED: CEPH-509 PO (15:34)
[2022-01-30] MEDS ORDERED: TAM04C PO (15:34)
[2022-01-30] MEDS ORDERED: HYDR-4902 PO (15:35)
[2022-01-30] MEDS ORDERED: TAMSULOSIN HYDROCHLORIDE 0.4 MG CAP PO SCH (18:00)
[2022-01-30] MEDS ORDERED: DONEPEZIL HYDROCHLORIDE 5 MG TAB PO SCH (22:00)
[2022-01-30] MEDS ORDERED: ATORVASTATIN 20 MG TAB PO SCH (22:00)
== END 2022-01-30 17:25 | disposition home or self-care (01) | DRG 690 ==
LOC: EDBD 13:30 → ER 13:30 → OVERFLOW 22:03 → WEST WING 23:40
PROVIDERS: ADMIT Nurse Practitioner; ATTEND Internal Medicine
DX: N13.6 Pyonephrosis (principal); I13.0 Hypertensive heart and chronic kidney disease with heart failure and stage 1 through stage 4 chronic kidney disease, or unspecified chronic kidney disease; N40.0 Benign prostatic hyperplasia without lower urinary tract symptoms; Z20.822 Contact with and (suspected) exposure to COVID-19; E11.22 Type 2 diabetes mellitus with diabetic chronic kidney disease; E78.5 Hyperlipidemia, unspecified; E11.51 Type 2 diabetes mellitus with diabetic peripheral angiopathy without gangrene; G47.00 Insomnia, unspecified; N18.9 Chronic kidney disease, unspecified; R31.0 Gross hematuria; Z79.4 Long term (current) use of insulin; Z79.84 Long term (current) use of oral hypoglycemic drugs; Z79.899 Other long term (current) drug therapy; Z86.73 Personal history of transient ischemic attack (TIA), and cerebral infarction without residual deficits; Z87.442 Personal history of urinary calculi; I25.2 Old myocardial infarction; I50.9 Heart failure, unspecified
CPT/HCPCS: 36415; 51702; 71045; 74177; 76775; 76856; 80053; 81001; 82962; 83605; 83690; 83735; 84484; 85025; 85610; 85730; 86850; 86900; 86901; 87086; 87088; 87186; 93005; 96365; G0378; J0696; J1815

== ENCOUNTER 2023-09-26 09:50 | Emergency (ER) | payer OTHER ==
[~2023-09-26] VITALS: Ht 167.6 cm; Wt 77.3 kg
[~2023-09-26 09:50] MED LIST changes: +CEPH-509 PO; +GLIM-38 PO; -GLIM-5 PO; +HYDR-4902 PO; +TAMS-35 PO
[2023-09-26] MEDS ORDERED: HYDROcodone-ACET 5/325MG TAB PO ONE (11:30)
[2023-09-26 11:39] LABS: Urine Bacteria NONE SEEN /hpf (None Seen); Urine Blood 2+ /uL (Negative); Urine Clarity Clear (Clear); Urine Color Yellow (Yellow); Urine Protein, UAD 2+ (Negative); Urine Specific Gravity 1.024 (1.001-1.035); Urine WBC 11 /hpf (0 - 3)
[2023-09-26] MEDS ORDERED: cefTRIAXone SOD 1,000 MG VL IM ONE (12:00)
[2023-09-26] MEDS ORDERED: TRAM50TA2 PO (12:20)
[2023-09-26] MEDS ORDERED: CIPR-173 PO (12:20)
[2023-09-26 12:26] VITALS: BP 171/92; PULSE 75; RESP 12; O2SAT 96
== END 2023-09-26 12:30 | disposition home or self-care (01) ==
LOC: ER 09:50
DX: N20.9 Urinary calculus, unspecified (principal); N30.00 Acute cystitis without hematuria; M54.50 Low back pain, unspecified; E11.22 Type 2 diabetes mellitus with diabetic chronic kidney disease; I13.0 Hypertensive heart and chronic kidney disease with heart failure and stage 1 through stage 4 chronic kidney disease, or unspecified chronic kidney disease; N18.9 Chronic kidney disease, unspecified; I50.9 Heart failure, unspecified; E78.5 Hyperlipidemia, unspecified; Z86.73 Personal history of transient ischemic attack (TIA), and cerebral infarction without residual deficits; X50.1XXA Overexertion from prolonged static or awkward postures, initial encounter; Y93.01 Activity, walking, marching and hiking; Y92.89 Other specified places as the place of occurrence of the external cause; Y99.8 Other external cause status
CPT/HCPCS: 72100; 81001; 96372; 99284; J0696

== ENCOUNTER 2023-10-02 07:11 | Emergency (ER) | payer OTHER ==
[~2023-10-02] VITALS: Ht 167.6 cm; Wt 67.7 kg
[~2023-10-02 07:11] MED LIST changes: +CIPR-173 PO; +TRAM50TA2 PO
[2023-10-02 08:20] LABS: Urine Bacteria NONE SEEN /hpf (None Seen); Urine Blood Negative /uL (Negative); Urine Clarity Clear (Clear); Urine Color Straw (Yellow); Urine Protein, UAD 1+ (Negative); Urine Specific Gravity 1.015 (1.001-1.035); Urine Urobilinogen Normal (Negative); Urine WBC 34 /hpf (0 - 3); Urine pH 5.5 (5.0-8.0)
[2023-10-02 08:29] LABS: Basophils # (auto) 0.1 10 ^3/uL (0-0.2); Basophils % (auto) 0.7 % (0.0-2.0); Hemoglobin 18.1 g/dL (13.5-17.5); Lymphocytes # (auto) 1.4 10 ^3/uL (0.4-5.4); Mean Corpuscular Hgb Conc. 33.9 g/dL (32.0-36.0); Monocytes # (auto) 0.7 10 ^3/uL (0-1.3)
[2023-10-02 08:32] LABS: Eosinophils # (auto) 0.5 10 ^3/uL (0-0.8); Eosinophils % (auto) 5.3 % (0.0-7.0); Hematocrit 53.5 % (41.0-53.0); Lymphocytes % (auto) 13.2 % (10.0-50.0); Mean Corpuscular Hemoglobin 30.3 pg (28.0-32.0); Mean Corpuscular Volume 89.3 fL (80.0-100.0); Neutrophils # (auto) 7.6 10 ^3/uL (1.6-8.6); Neutrophils % (auto) 73.8 % (37.0-80.0); Nucleated Red Blood Cells % 0.4 %; Red Blood Cells 5.99 10^6/uL (4.5-5.90); Red Cell Distribution Width 14.7 % (11.8-14.3); White Blood Cell 10.3 10^3/uL (4.4-10.8)
[2023-10-02 08:54] LABS: Alanine Aminotransferase 17 U/L (7-40); Alkaline Phosphatase 86 U/L (46-116); Anion Gap 8 (5-15); Aspartate Aminotransferase 24 U/L (13-40); BUN/Creatinine Ratio 11.2 (10.0-20.0); Blood Urea Nitrogen 14 mg/dL (9-23); Carbon Dioxide 23 mmol/L (20-30); Chloride 105 mmol/L (98-107); Glucose 111 mg/dL (74-106); Potassium 4.3 mmol/L (3.5-5.1); Sodium 136 mmol/L (136-145)
[2023-10-02 08:55] LABS: Bilirubin, Total 0.6 mg/dL (0.2-1.0); Total Protein 8.5 g/dL (5.7-8.2)
[2023-10-02] MEDS ORDERED: KETOROLAC TROMETH 30 MG/ML 1ML VIAL IV ONE (12:30)
[2023-10-02] MEDS ORDERED: cefTRIAXone 1GM/50ML D5W 50 ML IV ONE (12:30)
[2023-10-02 14:07] VITALS: BP 159/104; PULSE 99; RESP 18; TEMP 98.2; O2SAT 97
[2023-10-02] MEDS ORDERED: CEFD300C2 PO ×3 (14:30→15:13)
[2023-10-02] MEDS ORDERED: CYCL-839 PO ×3 (14:30→15:13)
[2023-10-02] MEDS ORDERED: HYDR-4902 PO ×3 (14:30→15:13)
[2023-10-02] MEDS ORDERED: DICL50TA4 PO ×3 (14:30→15:13)
== END 2023-10-02 14:51 | disposition home or self-care (01) ==
LOC: ER 07:11
DX: S32.03 Fracture of third lumbar vertebra (principal); M62.830 Muscle spasm of back; N39.0 Urinary tract infection, site not specified; I13.0 Hypertensive heart and chronic kidney disease with heart failure and stage 1 through stage 4 chronic kidney disease, or unspecified chronic kidney disease; E11.22 Type 2 diabetes mellitus with diabetic chronic kidney disease; N18.9 Chronic kidney disease, unspecified; I50.9 Heart failure, unspecified; I25.2 Old myocardial infarction; E78.5 Hyperlipidemia, unspecified; Z86.73 Personal history of transient ischemic attack (TIA), and cerebral infarction without residual deficits; Z79.82 Long term (current) use of aspirin; Z79.899 Other long term (current) drug therapy; X58.XXXD Exposure to other specified factors, subsequent encounter
CPT/HCPCS: 36415; 72131; 80053; 81001; 85025; 96365; 96375; 99284; J0696; J1885